=== PATIENT | male | born 1970 | race Caucasian/White ===

== ENCOUNTER 2019-03-15 08:48 | Outpatient (CLI) | payer OTHER ==
--- NOTE | 2019-03-15 12:12 | XRAY Report ---
Reason: CERVICALGIA Procedure Date: 03/15/2019 Accession Number: [id number] / [id number] Procedure: XRN - Cervical Spine Complete CPT Code: FULL RESULT: EXAM: CERVICAL SPINE RADIOGRAPHY EXAM DATE: 03/15/2019 09:10 AM. CLINICAL HISTORY: Cervicalgia. COMPARISONS: None. TECHNIQUE: 5 views. FINDINGS: Alignment: Normal. No spondylolisthesis or scoliosis. Bones: The cervical vertebral bodies and posterior elements are well-visualized from the skull base through C7-T1. No fractures or bone lesions. Disks: Mild loss of disk space height from C4 through C7 with mild anterior osteophytosis. Facets: Mild facet arthropathy from C3 through C6. Neural Foramina: The neural foramina have bony patency bilaterally. On the right side there is visually osseous narrowing of C4-C5 and C5-C6. Soft Tissues: Normal. No prevertebral soft tissue swelling. The visualized lung apices are clear. IMPRESSION: Mild degenerative changes including osseous narrowing of multiple right-sided foramina. [facility]
== END 2019-03-15 08:49 | disposition home or self-care (01) ==
LOC: DI.N 08:48
PROVIDERS: ATTEND Specialist
DX: M50.321 Other cervical disc degeneration at C4-C5 level (principal); M47.812 Spondylosis without myelopathy or radiculopathy, cervical region
CPT/HCPCS: 72050